=== PATIENT | male | born 1975 | race Caucasian/White ===

== ENCOUNTER 2017-05-21 01:15 | Emergency (ER) | payer OTHER ==
[~2017-05-21] VITALS: Ht 182.9 cm; Wt 97.7 kg
[2017-05-21 02:10] VITALS: BP 135/94
== END 2017-05-21 02:12 ==
LOC: ER 01:16
DX: S60.811A Abrasion of right wrist, initial encounter (principal); G89.29 Other chronic pain; V87.7XXA Person injured in collision between other specified motor vehicles (traffic), initial encounter; Y93.89 Activity, other specified; Y92.89 Other specified places as the place of occurrence of the external cause; Y99.8 Other external cause status
CPT/HCPCS: 99283